=== PATIENT | male | born 1970 | race Caucasian/White ===

== ENCOUNTER → 2017-02-04 | Outpatient (CLI) | payer OTHER ==
[~2017-02-04] VITALS: Ht 172.7 cm; Wt 57.2 kg
[~2017-02-04] MED LIST: AMBIEN 10 MG TA10 MG PO; HYDROCODON-ACE1 EAC5 PO; HYDROCODON-ACE1 EAC7 PO; HYDROCODONE-AP1 EAC6 PO; MOBIC15 MG PO; SEROQUEL 25 MG25 M1 PO; TIZANIDINE HCL4 MG PO; TRAMADOL 50 MG50 MG PO; XANAX 0.5 MG0.5 M1 PO
--- NOTE | ~2017-02-04 | HPC ---
[facility] [address] [place] [place] [address] PAIN MANAGEMENT CONSULTATION Name: MAGDA VILLELA Room #: REG AFSHAN Fredrick.#: [id number] Admission: 02/04/17 Attend Phys: Charles Lebron MD Discharge: Date of : 74 Report #: [id number] THIS REPORT FOR: //name// CC: Lorna ORLANDO MD DATE OF SERVICE: 02/04/2017 Followup visit for management of postoperative pain following an extensive multilevel thoracic fusion. The patient presents to pain clinic today for 15-minute followup. His pain is tolerable, although he still finds that by the end of the day he is really worn out. His pain is 7/10. He still has a sharp tearing feeling mostly on the right side just at the top of his fusion. X-rays reviewed showed that there is about 1/2 inch portion of the right-sided jim that protrudes out and it is possibly trigger pain. I pulled out the and we discussed how the jim has healed nicely and is in good position, but may be pressing on the muscle enough to cause localized muscle spasm and ache. He is going to discuss it with Dr. Orlando. I am not sure if it makes any sense or it is worth the risk to go back in and nip off the upper part of that jim, that is out of my area of expertise and I will leave that discussion and decision to Dr. Orlando. Functionally, he is doing really well. He is working 5 days a week, 40-hour week, but pain is really still a problem and he is requiring some ongoing use of medication. He is conservative in its use and I provide for him only hydrocodone 5/325 to be taken 1-2 tablets up to 3 times a day, 90 tablets is sufficient for a month. We can see he does not use it much. He also has tramadol, which he can use as an alternative. Another problem for the patient is insomnia. He has a lot of trouble waking up in the middle of the night and go back to sleep. He has tried a number of medicines. We reviewed them today. He has not tried a low dose of benzodiazepine. I reviewed his sleep patterns. He is unable to fall asleep and he cannot stay asleep. He says that his mind races at all times. Interestingly, it does not ruminate so much or worries about the future. He tends to replay certain scenes over and over in his head and he says he has done this ever since he was a kid. He has never been a really good sleeper and some nights he does not get a single hour of sleep, lays in bed rests, but does not sleep well, other nights it is 2-4 hours. We will see if maybe anxiolytics at bedtime will be helpful. I think a small dose along with the small dose of hydrocodone will be tolerated [address] [address] PAIN MANAGEMENT CONSULTATION Name: MAGDA VILLELA Room #: REG AFSHAN Reynoso#: [id number] Admission: 02/04/17 Attend Phys: Charles Lebron MD Discharge: Date of : 74 Report #: [id number] and understands the risk and interaction between benzodiazepine and opioid. I am taking him off the Seroquel, which was ineffective. PHYSICAL EXAMINATION: He is pleasant, alert and oriented. Blood pressure 100/63, respirations are 14, heart rate 72. Scar is nicely healed. There is no evidence of inflammation or swelling. At the right upper paravertebral jim there is a marked tenderness and a little bit of muscle spasm trigger. Movements are restricted by some pain. IMPRESSION: Myofascial pain related to right-sided fusion ride. PLAN: 1. Trigger point injection today, this might be diagnostic as well as therapeutic. 2. Renew medications under terms of written opioid agreement. PROCEDURE: Trigger point was performed with a 27-gauge needle gently and infiltrating in and around the upper edge of the jim using 5 mL of 0.5% bupivacaine mixed with 40 mg of triamcinolone. He tolerated the procedure well, was observed for short time and discharged with some reduction in pain. Followup visit is planned in 3 months. By: [id number] Charles Lebron MD /nt
[2017-02-04 10:56] VITALS: BP 100/63
== END | disposition home or self-care (01) ==
LOC: PAIN 07:14
DX: M79.1 Myalgia (principal); G47.00 Insomnia, unspecified

== ENCOUNTER → 2017-03-16 | Outpatient (CLI) | payer OTHER | LOC: RAD 18:08 | DX: M41.85 Other forms of scoliosis, thoracolumbar region (principal); M54.5 Low back pain ==

== ENCOUNTER → 2017-04-08 | Outpatient (CLI) | payer OTHER ==
[~2017-04-08] VITALS: Ht 175.3 cm; Wt 53.7 kg
[~2017-04-08] MED LIST changes: +ALPRAZOLAM2 MG PO; +MORPHINE SULFAT15 M3 PO
[2017-04-08 09:40] VITALS: BP 103/71
== END | disposition home or self-care (01) ==
LOC: PAIN 06:44
DX: G89.29 Other chronic pain (principal); G47.00 Insomnia, unspecified; Z79.899 Other long term (current) drug therapy; F17.210 Nicotine dependence, cigarettes, uncomplicated

== ENCOUNTER → 2017-06-14 | Outpatient (CLI) | payer OTHER ==
[~2017-06-14] VITALS: Ht 170.2 cm; Wt 54.4 kg
--- NOTE | ~2017-06-14 | HPC ---
[facility] [address] [place] [address] PAIN MANAGEMENT CONSULTATION Name: MAGDA VILLELA Room #: REG AFSHAN Fredrick.#: [id number] Admission: 06/14/17 Attend Phys: Charles Lebron MD Discharge: Date of : 74 Report #: [id number] THIS REPORT FOR: //name// CC: Lorna Lebron DATE OF SERVICE: 06/14/2017 Followup visit for severe upper back pain on the left with myofascial components. The patient is status post extensive thoracolumbar fusion. Magda returns to pain clinic today in followup. 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 His job is physical and he is active. At times he is lifting pallets above his head. He has an extensive thoracic fusion extending from T5 through L1 with pedicle screws. I have advised him about activities and I have discussed the importance of protecting the levels above and below with fusion. I ena pictures today to discuss hypermobility issues that can oftentimes result in additional disk injuries above and below. He is sleeping a little better and did not discuss that today. He is receiving his primary care at the [facility] and is unable to see the same physician on a regular basis there. I am his only physician apparently that is seeing him over a long period of time. Today, he reports his pain as an 8, it localized just medial to the left scapula with severe stabbing, pinching sensations and local trigger points. There is not much pain along the fusion or along his scar. He does not have radiation into the anterior chest wall. He has no decreased sensation. He has no pain into his lower extremities and currently is not complaining of pain in his low back. MEDICATIONS: Provided under terms of an opioid agreement. He is currently taking hydrocodone 5/325 three times daily, alprazolam 2 mg at bedtime for sleep, tramadol 50 mg 1-2 tablets 3 times daily. He is not taking morphine on a regular basis, so he is using less opioid medication. PHYSICAL EXAMINATION: Blood pressure 112/69, heart rate 94. BMI is 18.8. He has put on a little bit of weight since his last visit. His affect is pleasant and determined. He exhibits localized trigger point discomfort along the trapezius and the thoracic paravertebral muscle groups. No loss of sensation, numbness or tingling. IMPRESSION: [facility] [address] [place] [address] PAIN MANAGEMENT CONSULTATION Name: MAGDA VILLELA Room #: REG AFSHAN Reynoso#: [id number] Admission: 06/14/17 Attend Phys: Charles Lebron MD Discharge: Date of : 74 Report #: [id number] 1. Thoracic myofascial pain to muscle groups. 2. Extensive thoracic fusion T5-T12 with pedicle screws bilaterally. 3. Insomnia. 4. Management of high risk medications under terms of a written opioid agreement. PLAN: I renewed his hydrocodone 5/325 t.i.d. p.r.n., tramadol 50 to 100 mg t.i.d. p.r.n., alprazolam 2 mg p.o. at bedtime. PROCEDURE: Trigger point injections. The patient was placed in the sitting position, skin was prepped with ChloraPrep. At 25-gauge 1-1/2 inch needle was used to infiltrate a total of 10 mL of 0.5% lidocaine in combination with 0.25% bupivacaine and 20 mg of triamcinolone into muscle groups comprising 6 separate injections. He tolerated the procedure well. Pain was reduced at discharge. Followup visit planned in 3 months. I spent an additional 15-20 minutes today counseling for a total visit time of 25 minutes. This included discussions about smoking and strategies to quit. I have recommended that he stop cold turkey, which has been shown to be more successful. We talked about standard quitting protocols and questions were answered. By: [id number] Charles Lebron MD /nt
[2017-06-14 08:28] VITALS: BP 112/69
== END | disposition home or self-care (01) ==
LOC: PAIN 07:01
DX: M79.1 Myalgia (principal); G47.00 Insomnia, unspecified; F17.200 Nicotine dependence, unspecified, uncomplicated

== ENCOUNTER → 2017-06-22 | Outpatient (CLI) | payer OTHER | LOC: RAD 13:00 | DX: M79.89 Other specified soft tissue disorders (principal) ==

== ENCOUNTER → 2017-09-30 | Outpatient (CLI) | payer OTHER ==
[~2017-09-30] VITALS: Ht 172.7 cm; Wt 59.4 kg
[~2017-09-30] MED LIST changes: +DOXYCYCLINE 10100 MG PO; +PREDNISONE50 MG PO; +PROAIR HFA8.5 GM INH; +REMERON15 MG PO; +TESSALON PERLE100 MG PO
--- NOTE | ~2017-09-30 | HPC ---
[facility] [address] [place] [address] PAIN MANAGEMENT CONSULTATION Name: MAGDA VILLELA Room #: REG MARILYNNorma Reynoso#: [id number] Admission: 09/30/17 Attend Phys: Charles Lebron MD Discharge: Date of : 74 Report #: [id number] THIS REPORT FOR: //name// CC: Lorna Malone DATE OF SERVICE: 09/30/2017 HISTORY OF PRESENT ILLNESS: The patient returns to pain clinic today in followup. I last saw him on 08/05/2017. Continues to work 48 hours a week. He is now just barely a year status post extensive thoracic laminectomy and fusion. He continues on medication management. He has found a recipe that will allow him to sleep at night, which was a major concern. He is here today for renewal of his medications. Medications that seemed to be helping are [place] 5/325, he takes no more than 3 tablets a day for a total of 15 morphine milligram equivalents. He uses mirtazapine 15 mg at bedtime in combination with alprazolam 2 mg at bedtime. With this, he has been able to sleep. This is the first recipe of medications that has worked at all. He takes Celebrex 200 mg daily and finds that this may be helpful as well. I renewed the medication for him today for his osteoarthritic pain. Pain score today is 7. He has trouble getting out of bed, but once the day starts he is able to continue throughout the day at his work. He works 6 days a week. PHYSICAL EXAMINATION: He looks tired. His blood pressure is 117/82, heart rate 94, respirations 16. BMI is 99.9. He has tenderness throughout the mid back. Range of motion of the spine is limited. There is no pain in his extremities. IMPRESSION: 1. Chronic thoracic spine pain, status post extensive thoracic laminectomy and fusion. 2. Insomnia. 3. Posttraumatic stress disorder. 4. Management of high risk medications under terms of written opioid agreement. All medications reviewed and reconciled. The importance of safeguarding medications was discussed. Cautions regarding benzodiazepines and opioids were given. He is on very low dose and shows good tolerance to these medicines and he is finally receiving relief with sleep. [address] [address] PAIN MANAGEMENT CONSULTATION Name: MAGDA VILLELA Room #: REG [facility].#: [id number] Admission: 09/30/17 Attend Phys: Charles Lebron MD Discharge: Date of : 74 Report #: [id number] PLAN: To see him in 3 months. <ELECTRONICALLY SIGNED> By: Charles Lebron MD 11/24/17 [id number] Charles Lebron MD /nt
[2017-09-30 12:47] VITALS: BP 117/82
== END ==
LOC: RAD 07:10 → PAIN 07:10
DX: S69.81XA Other specified injuries of right wrist, hand and finger(s), initial encounter (principal); F11.90 Opioid use, unspecified, uncomplicated; F43.10 Post-traumatic stress disorder, unspecified; Z98.890 Other specified postprocedural states; Z79.899 Other long term (current) drug therapy; X58.XXXA Exposure to other specified factors, initial encounter; Y93.89 Activity, other specified; Y92.89 Other specified places as the place of occurrence of the external cause; Y99.8 Other external cause status

== ENCOUNTER → 2018-01-13 | Outpatient (CLI) | payer OTHER ==
[~2018-01-13] VITALS: Ht 172.7 cm; Wt 57.2 kg
--- NOTE | ~2018-01-13 | HPC ---
[facility] [address] [place] [address] PAIN MANAGEMENT CONSULTATION Name: MAGDA VILLELA Room #: REG AFSHAN M.Beth.#: [id number] Admission: 01/13/18 Attend Phys: Charles Lebron MD Discharge: Date of : 74 Report #: [id number] THIS REPORT FOR: //name// CC: Lorna WEST JR, MD DATE OF SERVICE: 01/13/2018 Followup visit for chronic intractable back pain status post extensive thoracic fusion. It has now been roughly 14 months since the patient's surgery at [facility]. He has had many, many rough months. I followed him carefully for help with management of his pain and encouraged him as he has returned to work. We have struggled mildly with the issue of insomnia. Roughly 6 months ago, he was sleeping just few restless hours per night. We have now had him on the same regimen for many months that have worked effectively and have made a dramatic difference in his ability to function, interact, his psychological outlook and to help control his pain. We have entered into this medication regimen cautiously and carefully by titration and will plan to continue the use of Remeron 15 mg at bedtime, alprazolam 2 mg at bedtime, hydrocodone 5/325 three per day and tramadol 50 mg 1-2 tablets 3 times daily for a maximum of 6 tablets. The patient is doing very well. He reports that his pain intensity is down to a 5/10. He is eating better as well and has gained a bit of weight. There is a different look in his eyes. PHYSICAL EXAMINATION: Pleasant, alert and oriented. Blood pressure is 112/70, heart rate 94, respirations 14, O2 sat 97, his BMI is 19.2. His chest is clear. His cardiac rhythm is regular. His midline back incision is mildly tender. He has limited range of motion throughout the thoracic and lumbar spine. His gait is strong. There is no lumbar symptoms whatsoever at this time. IMPRESSION: 1. Chronic thoracic spine pain, status post extensive thoracic laminectomy and fusion. 2. Posttraumatic stress disorder, which has improved dramatically with treatment of his insomnia. 3. Management of high risk medications under terms of written opioid agreement. We have reviewed risks and benefits of his medications. The combination of a benzodiazepine and opioid is well understood and the patient recognizes that there are some risks, but at current doses which have been carefully managed, I [facility] [address] [place] [address] PAIN MANAGEMENT CONSULTATION Name: MAGDA VILLELA Room #: REG CLI Edgardo#: [id number] Admission: 01/13/18 Attend Phys: Charles Lebron MD Discharge: Date of : 74 Report #: [id number] think they provided far more good than harm. The benefit of sleep cannot be over emphasized. Followup visit is planned in 3 months. By: 1437 Charles Lebron MD /oli
[2018-01-13 10:56] VITALS: BP 112/70
== END ==
LOC: PAIN 07:01
DX: M54.6 Pain in thoracic spine (principal); G89.29 Other chronic pain; M96.1 Postlaminectomy syndrome, not elsewhere classified; F43.10 Post-traumatic stress disorder, unspecified; F11.90 Opioid use, unspecified, uncomplicated

== ENCOUNTER → 2018-04-11 | Outpatient (CLI) | payer OTHER ==
[~2018-04-11] VITALS: Ht 172.7 cm; Wt 58.8 kg
--- NOTE | ~2018-04-11 | CRIT ---
[facility] [place] [address] CRITICAL CARE NOTE Name: MAGDA VILLELA Room #: REG AFSHAN Edgardo#: [id number] Admission: 04/11/18 Attend Phys: Charles Lebron MD Discharge: Date of : 74 Report #: [id number] THIS REPORT FOR: //name// CC: Charles Malone DO DATE OF SERVICE: 04/11/2018 Followup visit for chronic thoracic pain status post extensive thoracic laminectomy and fusion. The patient returns to pain clinic today for medication management. I have followed him closely since the time following his surgery. He has returned to work and I have worked carefully to taper his medication. 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 He has been working 6 days a week. His work is intense and requires lifting and caring. He tends to be the first to volunteer for tasks if his story is to be accepted and I have no reason not to. His describes him in the same terms. He has told me today that he is going to begin backing off and start working to 5-day week with better hours. I am in full agreement. 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 He has struggled in the past with the issues of posttraumatic stress disorder, which is documented throughout my record. He has had insomnia as a result of this and with careful titration, we are having him sleeping better. He is on drugs that I have taken ____ carefully could cause potential and serious side effects. We have discussed on multiple occasions and reviewed today the proper method of taking his medications to ensure that there is no overdose. He is on a combination of alprazolam 2 mg at bedtime and hydrocodone 5/325, which he takes up to 3 times a day. In addition, he is on tramadol, which he takes 2 tablets 3 times daily and Remeron 15 mg at bedtime. While I am not tremendously fond of polypharmacy, I have been able to carefully manage his medications myself and watch over it dosing. We have talked about lowering the dose when he can to manage his opioid medications and other pain medications as carefully as possible. PHYSICAL EXAMINATION: Today, he is pleasant, alert and oriented. He is 5 feet 8 inches, 129 pounds, BMI is 19.7 which is pretty standard for him actually up a little bit. His blood is pressure 101/63, heart rate 77. He has tenderness in his mid back in the area of his thoracic fusion. He is able to ambulate without difficulty. He and his in fact rode in this morning on their motorcycle once again! [facility] [address] [place] [address] CRITICAL CARE NOTE Name: MAGDA VILLELA Room #: REG AFSHAN Reynoso#: [id number] Admission: 04/11/18 Attend Phys: Charles Lebron MD Discharge: Date of : 74 Report #: [id number] IMPRESSION: 1. Chronic thoracic pain status post extensive thoracic laminectomy and fusion. 2. Posttraumatic stress disorder and insomnia, which is improved with careful management of medication. 3. Management of opioid medications under terms of written opioid agreement, which were reviewed in detail today as far as safeguarding medications and side effects. Followup visit planned in my pain clinic in 3 months. Medications were renewed with release dates in 4 and 8 weeks. By: [id number] Charles Lebron MD /nt
[2018-04-11 10:20] VITALS: BP 101/63
== END ==
LOC: PAIN 08:37
DX: M54.6 Pain in thoracic spine (principal); G89.29 Other chronic pain; Z79.891 Long term (current) use of opiate analgesic

== ENCOUNTER → 2018-07-18 | Outpatient (CLI) | payer BC, OTHER ==
[~2018-07-18] VITALS: Ht 172.7 cm; Wt 58.5 kg
--- NOTE | ~2018-07-18 | HPC ---
[facility] [address] [place] [address] PAIN MANAGEMENT CONSULTATION Name: MAGDA VILLELA Room #: REG AFSHAN Reynoso#: [id number] Admission: 07/18/18 Attend Phys: Callie Dillard Discharge: Date of : 74 Report #: [id number] THIS REPORT FOR: //name// CC: Callie Malone DO DATE OF SERVICE: 07/18/2018 REASON FOR VISIT: Followup visit today for chronic thoracic pain status post extensive thoracic laminectomy and fusion. HISTORY OF PRESENT ILLNESS: The patient returns to the pain clinic today for medical management. Dr. Lebron has followed him. This is his first time seeing me. He has returned to work. He works at [employer]. Currently, he tells me that he is moving quite large items, trying to use good body mechanics. Sometimes he has to alter his plan of how to do things, but so far, he has been able to work about 35 hours a week at [employer]. He states that he has had lots of problems with his medicine getting filled from the [facility] that he has been using. They have been only giving him 4-7 days supply of his tramadol, which he normally takes 250 mg 3 times a day, but he has been having to take one tablet at a time. They also did not fill his Xanax last month with no explanation of why. We did do prior authorize hydrocodone and since that prior authorization done he has been getting that in a timely fashion. The patient complains of pain hurting all over low back, upper back, feels the middle of his back like a leather strap. It is just down the middle of it with decreased sensation. Pain score is 6/10 today, worse with activity such as his work, better when he has his medications at the normal doses that Dr. Lebron prescribes. His or girlfriend is here today and states that he was doing better when he was on all of his medications and they found a good regimen that Dr. Lebron has been giving him. The patient denies any somnolence or constipation issues. ALLERGIES: No known drug allergies. MEDICATIONS: Hydrocodone 5/325 up to 3 times a day as needed for severe pain, tramadol 50 mg script is for 2 tablets 3 times a day, mirtazapine 15 mg at bedtime and Xanax 2 mg at bedtime. PQRS: 1. History of osteoarthritis in his back. No rheumatoid arthritis. 2. Height 5 feet 2 inches, weight 129, BMI 19.6. 3. Vital signs: Blood pressure 115/86, pulse is 90, respirations 14, oxygen level is 99. 4. Pain score 6-8. 5. Fall risk. Denies dizziness, does not need help walking or standing. He has not fallen in the last [address] [address] PAIN MANAGEMENT CONSULTATION Name: MAGDA VILLELA Room #: REG CLNorma Reynoso#: [id number] Admission: 07/18/18 Attend Phys: Callie Dillard Discharge: Date of : 74 Report #: [id number] 6. The patient is not on any blood thinners. 7. No history of hypertension. 8. The patient has opioid therapy greater than 6 weeks, therefore an opioid contract is on the chart. 9. Risk assessment tool was provided and it is a low risk on that. 10. Functional assessment score is 32/70. 11. Denies recreational drug use. Does smoke tobacco products daily and no alcohol use. [place] and [place] K-TRACS, PDMP were done with no apparent abuse listed or no other physicians prescribing medicines. It does show that the patient has been getting 4-7 days of his tramadol and a full 30 days of his hydrocodone. No Xanax has been filled in the last 30 days. The patient states this is due to his pharmacy not filling them. PHYSICAL EXAMINATION: The patient is a 48-year-old is pleasant, alert and orientated. His BMI is 19.6, which is down even some from last visit. He has tenderness in his mid back in his area of thoracic fusion. He is able to ambulate without difficulty. He did ride his motorcycle to the appointment today. He states that he is able to bend without difficulty, but does have pain in his middle and low back. ASSESSMENT: 1. Chronic thoracic pain status post thoracic laminectomy and fusion. 2. Posttraumatic stress disorder and insomnia. 3. Management of opioid medications under opioid agreement. We reviewed the fact that opiate medications are being used to provide analgesia adequate to support activities of daily living, not attempting to achieve a specific pain score on the 0-10 Visual Analog Scale. The current opiate medications are providing sufficient analgesia to allow the patient to participate in activities of daily living. The patient is not exhibiting any aberrant behavior suggestive of drug diversion. The patient is not having any adverse reactions to medications. The patient is not suffering from daytime somnolence or mental acuity changes. The patient is managing opiate-induced constipation with appropriate ycag-nev-mdeuwil agents and dietary considerations. The patient was counseled on concern for caution with operating a motor vehicle while using opiate medications. A physical exam was performed and the patient's functional status was evaluated. All patients with back pain were advised against the bed rest greater than 4 days and were advised to return to normal activities. Pain score assessment was noted and the treatment plan was reviewed with the patient. All current medications, both prescribed and OTC were reviewed and reconciled on the electronic medical record. Tobacco screening was accomplished and smoking cessation was advised when indicated. BMI was noted and diet/exercise modification was recommended for all patients following outside normal [facility] [address] [place] [address] PAIN MANAGEMENT CONSULTATION Name: MAGDA VILLELA Room #: REG AFSHAN Reynoso#: [id number] Admission: 07/18/18 Attend Phys: Callie Dillard Discharge: Date of : 74 Report #: [id number] parameters. I reviewed with the patient today their responsibilities to safeguard prescription medications, reviewed their responsibility to utilize medications only as prescribed by the physician. They are to seek and receive pain medications only from 1 physician group ( [facility]). They are to use 1 pharmacy and keep the clinic informed if they change pharmacies. Their responsibilities include making followup visits in a timely fashion and to avoid abrupt discontinuation of medication usage. Their responsibilities further include bringing their medications (bottles from the pharmacy with residual pills) to the visit for possible confirmation of pill counts and the patient understands it is their responsibility to submit to random drug screens to ensure both that the medications prescribed are present, and that no other controlled substances are present. All prescriptions provided today were generated electronically. PLAN: 1. The patient was given a script for Remeron 15 mg 1 p.o. at bedtime with 2 refills; script for hydrocodone 5/325, #90, one p.o. q. 8 hours for today, 4-week and 8-week; tramadol 50 mg 2 tablets 3 times a day, #180 with 2 additional refills and Xanax 2 mg 1 p.o. at bedtime. 2. We discussed in depth regarding the MME requirements for his narcotics. The patient falls below the 90 mEq that the CDC is recommending. The patient does also take a benzodiazepine. We discussed safeguarding these and the use of these. The patient states the regime that Dr. Lebron has him on is very helpful. 3. We will await a prior authorization from [facility] for tramadol and if need be talk to the pharmacy regarding why they are not allowing his Xanax refill. The patient was given our fax number to have them send the prior authorization for tramadol, so we can start doing that. 4. The patient will be seen in 3 months for medication management with Dr. Lebron or myself. The patient was seen in collaboration with Dr. Charles Lebron who did see the patient for a short visit also today. <ELECTRONICALLY SIGNED> By: Callie Dillard 07/19/18 [id number] Callie Dillard /oli
[2018-07-18 14:15] VITALS: BP 115/86
== END ==
LOC: PAIN 07:16
DX: M43.24 Fusion of spine, thoracic region (principal); M96.1 Postlaminectomy syndrome, not elsewhere classified; G47.00 Insomnia, unspecified; G89.29 Other chronic pain; F43.10 Post-traumatic stress disorder, unspecified; X58.XXXD Exposure to other specified factors, subsequent encounter; Z79.891 Long term (current) use of opiate analgesic; Z79.899 Other long term (current) drug therapy

== ENCOUNTER → 2018-10-04 | Outpatient (CLI) | payer BC, OTHER | LOC: RAD 11:23 | DX: M47.816 Spondylosis without myelopathy or radiculopathy, lumbar region (principal); M41.85 Other forms of scoliosis, thoracolumbar region; M85.89 Other specified disorders of bone density and structure, multiple sites ==

== ENCOUNTER → 2018-10-06 | Outpatient (CLI) | payer BC, OTHER ==
[~2018-10-06] VITALS: Ht 172.7 cm; Wt 60.1 kg
--- NOTE | ~2018-10-06 | HPC ---
[facility] [place] [address] PAIN MANAGEMENT CONSULTATION Name: MAGDA VILLELA Room #: REG MARILYNNorma Alcala.#: [id number] Admission: 10/06/18 Attend Phys: Charles Lebron MD Discharge: Date of : 74 Report #: [id number] THIS REPORT FOR: //name// CC: Charles Malone DO DATE OF SERVICE: 10/06/2018 Followup visit for chronic thoracic back pain status post 8-level thoracic laminectomy and fusion. The patient is here today with his . He had a sudden onset of pain a couple of weeks ago and the pain now has been much worse. I ordered new x-rays, AP, lateral, flexion and extension views of the lumbar spine. There appears to be no fracture or no change in the area above and below his fusion where we might expect that there would be some additional stresses applied. 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 I do not believe he should be doing this, particularly with such an extensive fusion. He is going to put a lot of stress above and below that fusion and I think that he is at great risk of breakdown. He is a young man, born in 1969, not yet 52. I would be much happier if he ____ job that does not involve manual labor. He is considering taking disability. I am typically opposed to taking full disability, but if he can take a partial disability which I would certainly support and work to keep himself active, I think that this would be reasonable in his best interest. He is a workaholic. He likes to work and he enjoys the challenges that face him. He likes accomplishing tasks and is definitely someone who appreciates the respect he gets for doing a job well. I think he would miss working, so transition is something alternate that would probably be better than a full disability. He is tolerating his medications well. He does not use excessive amounts of hydrocodone, but uses tramadol at a pretty high level, 100 mg 3 times daily, which has been helpful. Hydrocodone is taken only at a dose of 5/325 and up to 3 times a day. He uses it only as necessary. One of the biggest problems we have had the patient for a long time is sleep and with careful titration we now have him on a fairly helpful regimen with mirtazapine, which provides sedation and antidepressant and pain effect in combination with alprazolam 2 mg, a fairly high dose. We understand that there is an opioid-benzodiazepine interaction, but if he maintains his current dose, he has shown that he can take it safely. He will do so and safely manage his medication. He has a very supportive who helps him oversee his medication. MEDICATIONS: Reviewed and reconciled. [address] [address] PAIN MANAGEMENT CONSULTATION Name: MAGDA VILLELA Room #: REG AFSHAN Reynoso#: [id number] Admission: 10/06/18 Attend Phys: Charles Lebron MD Discharge: Date of : 74 Report #: [id number] PHYSICAL EXAMINATION: Today, he is pleasant as always. His blood pressure is 115/82, heart rate is 88, respirations 14. He is 5 feet 8 inches, 132 pounds, BMI of 20.2. Pain intensity is 8. I examined his scar, which looks fine. There is no evidence of swelling, redness, or inflammation at either end of his fusion. You can palpate the distal portion of the upper jim, but it does not necessarily tent the skin. He has limited range of motion of course in the area of fusion and he has some discomfort above the fusion, but the pain really extends all the way along the scar. He has no pain in the legs at this time. Deep tendon reflexes in lower extremities are normal with no evidence of hyperreflexia. IMPRESSION: 1. Post-laminectomy and fusion, multiple level thoracic with chronic persistent spine pain. 2. Management of high risk medications under terms of an opioid agreement. PLAN: Medications were renewed. Counseling was provided over the course of his 25-minute office visit. He continues to smoke 1 pack a day. He was encouraged to try and reduce his reliance on this addicting substance for stress management. I have encouraged him to continue to seek alternate work and we will see him back in the pain clinic in 3 months. By: [id number] Charles Lebron MD /nt
[2018-10-06 13:52] VITALS: BP 115/82
--- NOTE | 2018-10-06 14:06 | NUR ---
Pain Clinic Assessment: 1. History of Osteoarthritis: Not Applicable History of Rheumatoid Arthritis: Not Applicable 2. Height: 5 ft. 8 in. 172.7 cm. Weight: 132.6 lb. oz. 60.147 kg. Patient's BMI: 20.2 3. Vital Signs: BP: 115/82 Pulse: 88 Resp: 14 Temp: 02 Sat: 100 ECG Mon: 4. Pain Intensity: 8 5. Fall Risk: Dizziness: N Needs help standing or walking: N Fallen in the last 3 months: N Fall risk comments: 6. Patient on Blood Thinner: None 7. History of Hypertension: N 8. Opioid Therapy greater than 6 weeks: Y Opiate Contract Signed: 04/08/17 9. Risk Assessment Tool Provided: LOW RISK 09/29 10. Functional Assessment Tool: 11. Recreational Drug Use: Never Drug Type: Tobacco Use: Current Every Day Smoker Tobacco Type: Cigarettes Amount or Packs/day: 1 PACK DAY How Many Years: Alcohol Use: No Frequency: Quant: Pain Clinic Assessment: 1. History of Osteoarthritis: Not Applicable History of Rheumatoid Arthritis: Not Applicable 2. Height: 5 ft. 8 in. 172.7 cm. Weight: 132.6 lb. oz. 60.147 kg. Patient's BMI: 20.2 3. Vital Signs: BP: 115/82 Pulse: 88 Resp: 14 Temp: 02 Sat: 100 ECG Mon: 4. Pain Intensity: 8 5. Fall Risk: Dizziness: N Needs help standing or walking: N Fallen in the last 3 months: N Fall risk comments: 6. Patient on Blood Thinner: None 7. History of Hypertension: N 8. Opioid Therapy greater than 6 weeks: Y Opiate Contract Signed: 04/08/17 9. Risk Assessment Tool Provided: LOW RISK 09/29 10. Functional Assessment Tool: 11. Recreational Drug Use: Never Drug Type: Tobacco Use: Current Every Day Smoker Tobacco Type: Cigarettes Amount or Packs/day: 1 PACK DAY How Many Years: Alcohol Use: No Frequency: Quant:
== END ==
LOC: PAIN 07:09
DX: M43.24 Fusion of spine, thoracic region (principal); M96.1 Postlaminectomy syndrome, not elsewhere classified; Z79.891 Long term (current) use of opiate analgesic; Z79.899 Other long term (current) drug therapy

== ENCOUNTER → 2019-04-06 | Outpatient (CLI) | payer OTHER ==
[~2019-04-06] VITALS: Ht 172.7 cm; Wt 62.1 kg
[2019-04-06 08:09] VITALS: BP 116/72
--- NOTE | 2019-04-06 08:18 | NUR ---
Pain Clinic Assessment: 1. History of Osteoarthritis: Not Applicable History of Rheumatoid Arthritis: Not Applicable 2. Height: 5 ft. 8 in. 172.7 cm. Weight: 137.0 lb. oz. 62.143 kg. Patient's BMI: 20.8 3. Vital Signs: BP: 116/72 Pulse: 75 Resp: 14 Temp: 02 Sat: 100 ECG Mon: 4. Pain Intensity: 5 5. Fall Risk: Dizziness: N Needs help standing or walking: N Fallen in the last 3 months: N Fall risk comments: 6. Patient on Blood Thinner: None 7. History of Hypertension: N 8. Opioid Therapy greater than 6 weeks: Y Opiate Contract Signed: 04/06/19 9. Risk Assessment Tool Provided: LOW RISK 09/29 10. Functional Assessment Tool: 11. Recreational Drug Use: Never Drug Type: Tobacco Use: Current Every Day Smoker Tobacco Type: Cigarettes Amount or Packs/day: 1/4 How Many Years: 31 Alcohol Use: No Frequency: Quant:
--- NOTE | 2019-04-06 10:34 | HPC ---
[facility] [address] [place] [address] PAIN MANAGEMENT CONSULTATION Name: MAGDA VILLELA Room #: REG AFSHAN Reynoso#: [id number] Admission: 04/06/19 ������������������ Attend Phys: Callie Dillard Discharge: ������������������ Date of : 74 Report #: [id number] THIS REPORT FOR: //name// CC: Callie Malone DATE OF SERVICE: 04/06/2019 CHIEF COMPLAINT: Chronic thoracic back pain status post 8-level thoracic laminectomy and fusion. HISTORY OF PRESENT ILLNESS: This is a 49-year-old gentleman who returns to the pain clinic for refill of his medications. He tells me he has been unable to come for a while due to lack of insurance. He now has changed to a different company. In the meantime, he had been decreasing his pain medicines slowly and being able to get by with less medicine but increased pain. He tells me his pain score is a 5/10 today, mostly in his mid and lower back. He does have some leg pain as well. It is a constant, aching, stabbing, sharp pain, worse with activity, standing and walking, but he does continue to work on a daily basis despite his pain scores. He tells me his medication is helpful, but he has not had any hydrocodone for about a month and tramadol for a couple of weeks. He did run out of his mirtazapine and Xanax, last night he took his last dose, so he is wanting refills of all of his medications today. He does not suffer from any constipation, even when he is at his normal dose of narcotics. ALLERGIES: No known drug allergies. CURRENT LIST OF MEDICATIONS: Tramadol 50 mg 2 tablets 3 times a day, hydrocodone 5/325 p.r.n., Xanax 2 mg at bedtime and mirtazapine 15 mg at bedtime. PQRS: 1. He is not suffered from osteoarthritis or rheumatoid arthritis. 2. Height is 5 feet 8 inches, weight is 137 and BMI is 20. 3. VITAL SIGNS: Blood signs 116/72, pulse is 75, respirations 14 and oxygen sat is 100. 4. Pain score is 5/10. 5. Denies dizziness. He does not need help with walking or standing and has not fallen in the last 3 months. 6. The patient is not on any blood thinners or hypertension medicines. 7. Opioid therapy is greater than 6 weeks; therefore, an opiate signed contract is on the chart, renewed today. His risk assessment tool is low. Functional assessment is 32/70. 8. The patient does not use recreational drugs. He does smoke cigarettes about a fourth of a pack a day and does not drink alcohol. [address] [address] PAIN MANAGEMENT CONSULTATION Name: MAGDA VILLELA Room #: REG AFSHAN Reynoso#: [id number] Admission: 04/06/19 ������������������ Attend Phys: Callie Dillard Discharge: ������������������ Date of : 74 Report #: [id number] We did check the prescription monitoring system, it does show that he filled his medications last in December and then has slowly weaned down off those medications. There is a drug screen on the chart that is appropriate for his medications that he was prescribed from us. PHYSICAL EXAMINATION: GENERAL: This is alert and orientated 49-year-old who is pleasant, placing his pain score today at 5/10. HEENT: Normocephalic and atraumatic. Extraocular eye muscles are intact. Mucous membranes are moist. MUSCULOSKELETAL: He has a well-healed scar on his back. He complains of tenderness in the area of his thoracic fusion. He is able to ambulate without difficulty. He is able to bend without difficulty, but does have pain in his mid and lower back. His lower extremity strength judged to be 5/5 in all major muscle groups. He denies any pain in his legs currently. IMPRESSION: 1. Post-laminectomy and fusion, multiple level thoracic spine with chronic persistent spine pain. 2. Management of high risk medications under terms of written opioid agreement. 3. Insomnia. We reviewed the fact that opiate medications are being used to provide analgesia adequate to support activities of daily living, not attempting to achieve a specific pain score on the 0-10 Visual Analog Scale. The current opiate medications are providing sufficient analgesia to allow the patient to participate in activities of daily living. The patient is not exhibiting any aberrant behavior suggestive of drug diversion. The patient is not having any adverse reactions to medications. The patient is not suffering from daytime somnolence or mental acuity changes. The patient is managing opiate-induced constipation with appropriate midn-hep-xpjebag agents and dietary considerations. The patient was counseled on concern for caution with operating a motor vehicle while using opiate medications. A physical exam was performed and the patient's functional status was evaluated. All patients with back pain were advised against the bed rest greater than 4 days and were advised to return to normal activities. Pain score assessment was noted and the treatment plan was reviewed with the patient. All current medications, both prescribed and OTC were reviewed and reconciled on the electronic medical record. Tobacco screening was accomplished and smoking cessation was advised when indicated. BMI was noted and diet/exercise modification was recommended for all patients following outside normal parameters. I reviewed with the patient today their responsibilities to safeguard prescription medications, reviewed their responsibility to utilize medications [address] [address] PAIN MANAGEMENT CONSULTATION Name: MAGDA VILLELA Room #: REG [facility]..#: [id number] Admission: 04/06/19 ������������������ Attend Phys: Callie Dillard Discharge: ������������������ Date of : 74 Report #: [id number] only as prescribed by the physician. They are to seek and receive pain medications only from 1 physician group ( [facility]). They are to use 1 pharmacy and keep the clinic informed if they change pharmacies. Their responsibilities include making followup visits in a timely fashion and to avoid abrupt discontinuation of medication usage. Their responsibilities further include bringing their medications (bottles from the pharmacy with residual pills) to the visit for possible confirmation of pill counts and the patient understands it is their responsibility to submit to random drug screens to ensure both that the medications prescribed are present, and that no other controlled substances are present. All prescriptions provided today were generated electronically. PLAN: 1. We discussed treatment options with the patient today. The patient has slowly weaned down his medication since he is unable to come to the doctor due to insurance issues. 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 He has done fairly well, though he was taking additional Tylenol. We discussed resuming his medications slowly to see the lowest most effective dose that he will need. He will be given scripts of his former levels of medication that encouraged to resume slowly to see if he is able to take a lower dose. The patient will call with his lower dose. 2. Scripts given for hydrocodone 5/325, #90 for today, 4 and 8-week release and tramadol 50 mg 2 tablets 3 times a day, #180 with 2 additional refills. 3. The patient has significant insomnia and aside from his pain in his back, this is most problematic for him. Scripts given for his Remeron 15 mg #30 with two additional refill and Xanax 2 mg at bedtime, #30 with 2 additional refills. This medication affords him the ability to sleep at night. 4. The patient did resign his opioid contract with us. 5. The patient's current morphine milliequivalent is 45 based on the CDC guidelines if he is taking the full amount of these prescriptions while under the CDC guidelines. 6. The patient seen in collaboration today with Dr. Alphonso Schulz. This case was discussed with Dr. Charles Lebron, though Alphonso Schulz is covering for him today. ��������������������������������������������� <ELECTRONICALLY SIGNED> ���������������������������������������� By: Callie Dillard ��������������������������������������������� 04/06/19 1034 [id number] [id number] Callie Dillard /oli
== END ==
LOC: PAIN 04-03 08:19
DX: M43.24 Fusion of spine, thoracic region (principal); G47.00 Insomnia, unspecified; Z98.890 Other specified postprocedural states; Z79.899 Other long term (current) drug therapy; Z79.891 Long term (current) use of opiate analgesic

== ENCOUNTER → 2019-08-31 | Outpatient (CLI) | payer OTHER ==
[~2019-08-31] VITALS: Ht 172.7 cm; Wt 63.6 kg
[~2019-08-31] MED LIST changes: +MIRTAZAPINE15 M2 PO
[2019-08-31 14:52] VITALS: BP 103/72
--- NOTE | 2019-08-31 15:10 | NUR ---
Pain Clinic Assessment: 1. History of Osteoarthritis: DENIES History of Rheumatoid Arthritis: DENIES 2. Height: 5 ft. 8 in. 172.7 cm. Weight: 140.2 lb. oz. 63.594 kg. Patient's BMI: 21.3 3. Vital Signs: BP: 103/72 Pulse: 91 Resp: 14 Temp: 02 Sat: 97 ECG Mon: 4. Pain Intensity: 5 5. Fall Risk: Dizziness: N Needs help standing or walking: N Fallen in the last 3 months: N Fall risk comments: 6. Patient on Blood Thinner: None 7. History of Hypertension: N 8. Opioid Therapy greater than 6 weeks: Y Opiate Contract Signed: 04/06/19 9. Risk Assessment Tool Provided: LOW RISK 09/29 10. Functional Assessment Tool: 11. Recreational Drug Use: Never Drug Type: Tobacco Use: Current Every Day Smoker Tobacco Type: Cigarettes Amount or Packs/day: 1 How Many Years: 30 Alcohol Use: No Frequency: Special Occasions Quant:
--- NOTE | 2019-09-01 08:23 | HPC ---
[facility] [address] [address] PAIN MANAGEMENT CONSULTATION Name: MAGDA VILLELA Room #: REG AFSHAN Reynoso#: [id number] Admission: 08/31/19 Attend Phys: Callie Dillard Discharge: Date of : 74 Report #: [id number] THIS REPORT FOR: //name// CC: Callie Malone DATE OF SERVICE: 08/31/2019 CHIEF COMPLAINT: Chronic thoracic pain status post 8 level thoracic laminectomy and fusion. HISTORY OF PRESENT ILLNESS: This is a 49-year-old gentleman who returns to the pain clinic today for refill of his medication. We last saw him in March. He reports he is doing quite well on his current regimen, rating his pain score at 5/10 today. He does take his tramadol very sparingly and does take the hydrocodone as needed up to 3 times a day, occasionally only needing 2. He also finds his alprazolam and Remeron very beneficial allowing him to sleep since he does suffer from insomnia. Most of his pain is located in his mid to low back. It is an aching, pressure, occasionally sharp, worse with activity and walking, bending too much, but his medications are very beneficial. Magda reports that he feels that his pain is better controlled since he has recently changed jobs. 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 He feels this is much better for him despite being away from home for a significant amount of time. He has actually gained a little bit of weight and feels much better since starting this new job. ALLERGIES: No known drug allergies. CURRENT LIST OF MEDICATIONS: Tramadol p.r.n., Remeron 15 mg at bedtime, hydrocodone 5/325 t.i.d. p.r.n., alprazolam 2 mg at bedtime. PQRS: 1. The patient is not suffering from osteoarthritis or rheumatoid arthritis. 2. Height is 5 feet 8 inches, weight is 140, BMI is 21. 3. Vital signs 103/72, pulse is 91, respirations 14, oxygen sat is 97. 4. Pain score is 5/10. 5. Denies dizziness, does not need help walking or standing, has not fallen in the last 3 months. 6. The patient is not on any blood thinners or medicine for hypertension. 7. Opioid therapy is greater than 6 weeks; therefore, an opioid signed contract is on the chart. Risk assessment tool is low. Functional assessment is 32/70. 8. Recreational drug use, he denies. He is a current smoker of cigarettes [address] [place] [address] PAIN MANAGEMENT CONSULTATION Name: MAGDA VILLELA Room #: RUTH Reynoso#: [id number] Admission: 08/31/19 Attend Phys: Callie Dillard Discharge: Date of : 74 Report #: [id number] pack a day. He does not drink any alcohol. According to the prescription monitoring system, the patient filled his last hydrocodone this week. He is due for his other medications. There is a recent drug screen in the chart that is appropriate as well. He reports he does safeguard his medicine when he is traveling. PHYSICAL EXAMINATION: GENERAL: This is alert and orientated 49-year-old gentleman who appears his stated age, placing his current pain score at 5/10. HEENT: Normocephalic, atraumatic. Extraocular eye muscles are intact. Mucous membranes are moist. MUSCULOSKELETAL: He has tenderness in his thoracic area. Able to ambulate without difficulty. He has a well-healed scar in his thoracic region from his fusion. His lower extremity strength judged to be 5/5 in all major muscle groups. IMPRESSION: 1. Post-laminectomy with fusion, multiple level of thoracic fusion. 2. Chronic persistent thoracic back pain. 3. Management of high-risk medications under terms of written opioid agreement. 4. Insomnia. We reviewed the fact that opiate medications are being used to provide analgesia adequate to support activities of daily living, not attempting to achieve a specific pain score on the 0-10 Visual Analog Scale. The current opiate medications are providing sufficient analgesia to allow the patient to participate in activities of daily living. The patient is not exhibiting any aberrant behavior suggestive of drug diversion. The patient is not having any adverse reactions to medications. The patient is not suffering from daytime somnolence or mental acuity changes. The patient is managing opiate-induced constipation with appropriate dsod-ykz-cujyyfu agents and dietary considerations. The patient was counseled on concern for caution with operating a motor vehicle while using opiate medications. A physical exam was performed and the patient's functional status was evaluated. All patients with back pain were advised against the bed rest greater than 4 days and were advised to return to normal activities. Pain score assessment was noted and the treatment plan was reviewed with the patient. All current medications, both prescribed and OTC were reviewed and reconciled on the electronic medical record. Tobacco screening was accomplished and smoking cessation was advised when indicated. BMI was noted and diet/exercise modification was recommended for all patients following outside normal parameters. I reviewed with the patient today [facility] [address] [address] PAIN MANAGEMENT CONSULTATION Name: MAGDA VILLELA Room #[facility] REG [facility] [id number] Admission: 08/31/19 Attend Phys: Callie SANTIAGO Gilma Discharge: Date of : 74 Report #: [id number] prescription medications, reviewed their responsibility to utilize medications only as prescribed by the physician. They are to seek and receive pain medications only from 1 physician group ( [facility]). They are to use 1 pharmacy and keep the clinic informed if they change pharmacies. Their responsibilities include making followup visits in a timely fashion and to avoid abrupt discontinuation of medication usage. Their responsibilities further include bringing their medications (bottles from the pharmacy with residual pills) to the visit for possible confirmation of pill counts and the patient understands it is their responsibility to submit to random drug screens to ensure both that the medications prescribed are present, and that no other controlled substances are present. All prescriptions provided today were generated electronically. PLAN: 1. We discussed treatment options with the patient today. The patient finds his medication very beneficial. He is using his tramadol very sparingly and does not need a refill of that medication today. It has been 5 months since his last visit here; therefore, he has been taking less of his hydrocodone as well, recently filled his last prescription. 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 We will refill his hydrocodone 7.5/325, #90 for 4-week, 8-week and 12-week release. This will place the patient at 50 morphine milliequivalents per day. 2. We will refill his alprazolam 2 mg that he takes at bedtime along with his Remeron 15 mg #30 for 2 additional refills. The patient finds these very beneficial in helping with his insomnia. He feels that he could not function if he was without these medications. He understands the risks and reactions with these medications and his opioid medications. 3. The patient is seen in collaboration with Dr. Charles Lebron. The patient will return in 3 months or as needed for medications. <ELECTRONICALLY SIGNED> By: Callie Dillard 09/01/19 0823 [id number] Callie Dillard /oli
== END ==
LOC: PAIN 07:02
DX: M96.1 Postlaminectomy syndrome, not elsewhere classified (principal); M54.6 Pain in thoracic spine; G47.00 Insomnia, unspecified

== ENCOUNTER → 2019-12-25 | Outpatient (CLI) | payer OTHER ==
[~2019-12-25] VITALS: Ht 172.7 cm; Wt 62.3 kg
[~2019-12-25] MED LIST changes: +NICODERM CQ1 EAC1 TOP; +NICOTINE TRANSD14 M1 TRANSDERM; +NICOTINE TRANSD21 M1 TOP; +REMERON15 M2 PO
[2019-12-25 09:02] VITALS: BP 106/82
--- NOTE | 2019-12-25 09:15 | NUR ---
Pain Clinic Assessment: 1. History of Osteoarthritis: DENIES History of Rheumatoid Arthritis: DENIES 2. Height: 5 ft. 8 in. 172.7 cm. Weight: 137.4 lb. oz. 62.324 kg. Patient's BMI: 20.9 3. Vital Signs: BP: 106/82 Pulse: 73 Resp: 14 Temp: 02 Sat: 99 ECG Mon: 4. Pain Intensity: 3 5. Fall Risk: Dizziness: N Needs help standing or walking: N Fallen in the last 3 months: N Fall risk comments: 6. Patient on Blood Thinner: None 7. History of Hypertension: N 8. Opioid Therapy greater than 6 weeks: Y Opiate Contract Signed: 04/06/19 9. Risk Assessment Tool Provided: LOW RISK 1 10. Functional Assessment Tool: 11. Recreational Drug Use: Never Drug Type: Tobacco Use: Current Every Day Smoker Tobacco Type: Cigarettes Amount or Packs/day: 1 paci How Many Years: 37 Alcohol Use: No Frequency: Quant:
--- NOTE | 2019-12-25 14:46 | HPC ---
[facility] [address] [place] [address] PAIN MANAGEMENT CONSULTATION Name: MAGDA VILLELA Room #: REG AFHSAN Reynoso#: [id number] Admission: 12/25/19 Attend Phys: Callie Dillard Discharge: Date of : 74 Report #: [id number] THIS REPORT FOR: cc: Gerald Malone Vincent R. DO Hocker,Callie HENDERSON ~ CC: Charles Lebron DATE OF SERVICE: 12/25/2019 CHIEF COMPLAINT: Chronic thoracic back pain, status post thoracic laminectomy and fusion. HISTORY OF PRESENT ILLNESS: This is a 49-year-old gentleman who returns to the pain clinic today for refill of his medications. He feels that the medicines are very beneficial in helping him control his mid and low back. He occasionally also suffers from neck pain. Today, he is reporting his pain score 3/10 and is an aching, sharp, stabbing pain that is worse with prolonged standing and walking. He feels that his medication as well as heat and exercising as very beneficial. 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 At times, he has been able to decrease his medicine slightly during the day for pain control, but he is unable to go without his Remeron at night and he feels that is very beneficial in helping him sleep. He is able to take occasionally less alprazolam for sleep, but he finds he needs his Remeron on a daily basis. Today, the patient would also like to talk about smoking cessation. He currently smokes 1 pack of cigarettes a day and would like to discuss trying to stop smoking. ALLERGIES: No known drug allergies. CURRENT LIST OF MEDICATIONS: Hydrocodone 5/325 p.r.n., mirtazapine 15 mg at bedtime and alprazolam 2 mg at bedtime. PQRS: 1. He denies any osteo or rheumatoid arthritis. 2. Height is 5 feet 8 inches, weight is 137, BMI is 20. Vital signs; 106/82, pulse is 73, respirations 14, oxygen sat is 99. 3. Pain score is 3/10. 4. Denies dizziness, does not need help walking or standing, has not fallen in the last 3 months. 5. The patient is not on any blood thinners or medicine for hypertension. His opioid therapy is greater than 6 weeks; therefore, an opioid signed contract is on the chart. Risk assessment tool is low. Functional assessment is 32/70. 6. Recreational drug use, he denies. He is a current smoker of [address] [place] [address] PAIN MANAGEMENT CONSULTATION Name: MAGDA VILLELA Room #: REG AFSHAN Reynoso#: [id number] Admission: 12/25/19 Attend Phys: Callie Dillard Discharge: Date of : 74 Report #: [id number] cigarettes a day and does not drink alcohol. According to the prescription monitoring system, the patient is filling appropriately for his medications in a timely fashion. His new insurance only allowed a 7-day prescription in early November of his hydrocodone. We will check a random urine drug screen on this patient today had been greater than one year. According to the CDC guidelines, his morphine mEq is less than 15 per day. PHYSICAL EXAMINATION: GENERAL: This is alert and orientated 49-year-old who appears his stated age, placing his current pain score at 3/10 today. HEENT: Normocephalic, atraumatic. Extraocular eye muscles are intact. Mucous membranes are moist. MUSCULOSKELETAL: He has tenderness in his lower back with limited range of motion due to his fusion. Well-healed scar in his thoracic, lumbar region. His lower extremity strength judged to be 5/5 in all major muscle groups. He ambulates without difficulty. IMPRESSION: 1. Post-laminectomy with fusion, multiple levels of thoracic fusion. 2. Chronic persistent thoracic back pain. 3. Low back pain. 4. Management of high risk medications under terms of written opioid agreement. 5. Insomnia. 6. Tobacco habituation. We reviewed the fact that opiate medications are being used to provide analgesia adequate to support activities of daily living, not attempting to achieve a specific pain score on the 0-10 Visual Analog Scale. The current opiate medications are providing sufficient analgesia to allow the patient to participate in activities of daily living. The patient is not exhibiting any aberrant behavior suggestive of drug diversion. The patient is not having any adverse reactions to medications. The patient is not suffering from daytime somnolence or mental acuity changes. The patient is managing opiate-induced constipation with appropriate jpwc-zly-fhnyccf agents and dietary considerations. The patient was counseled on concern for caution with operating a motor vehicle while using opiate medications. PLAN: 1. We discussed treatment options with the patient today. The patient finds his medications very beneficial in controlling his pain and his insomnia on days he is able to take less alprazolam and less hydrocodone, but always needs his Remeron. Today, we will refill these medicines for; A. Hydrocodone 5/325, #90 for today, 4-week and 8-week release. B. Alprazolam 2 mg, #30 with 2 additional refills will be given. C. Remeron 15 mg, #30 with 5 additional refills will be sent electronically. [address] [address] PAIN MANAGEMENT CONSULTATION Name: MAGDA VILLELA Room #: REG AFSHAN [facility].#: [id number] Admission: 12/25/19 Attend Phys: Callie Dillard Discharge: Date of : 74 Report #: [id number] 3. We did discuss smoking cessation. The patient had tried to stop smoking in the past using Chantix. He had side effects as a result of this medication. We will try Nicoderm CQ patches. The patient is instructed to use a 21 mg patch for a month, then step 2 is 14 mg for 2 weeks, then step 3- 7 mg for 2 weeks and then off. He is to stop smoking with the first patch. The patient is very motivated to try to stop smoking, especially during this time when COVID-19 is affecting people that do have respiratory issues such as smoking more readily than nonsmokers. 4. The patient did provide a urine specimen for random drug screen today. 5. The patient is seen in collaboration with Dr. Charles Lebron. <ELECTRONICALLY SIGNED> By: Callie Dillard 12/25/19 1446 [id number] Callie Dillard /nt
== END ==
LOC: PAIN 06:42
DX: M54.6 Pain in thoracic spine (principal); M96.1 Postlaminectomy syndrome, not elsewhere classified; M43.24 Fusion of spine, thoracic region; M54.5 Low back pain; F11.20 Opioid dependence, uncomplicated

== ENCOUNTER → 2020-04-22 | Outpatient (CLI) | payer OTHER ==
[~2020-04-22] VITALS: Ht 172.7 cm; Wt 61.7 kg
--- NOTE | ~2020-04-22 | HPC ---
[facility] [address] [place] [address] PAIN MANAGEMENT CONSULTATION Name: MAGDA VILLELA Room #: REG AFSHAN Fredrick.#: [id number] Admission: 04/22/20 Attend Phys: Charles Lebron MD Discharge: Date of : 74 Report #: [id number] THIS REPORT FOR: cc: Gerald Malone,Charles Hicks MD ~ CC: Major Malone DO DATE OF SERVICE: 04/22/2020 Follow up visit for chronic thoracic back pain, status post thoracic laminectomy and fusion. The patient is here today in followup. I last saw him on 12/25/2019. He is on an opioid agreement and we managed medications for his chronic intractable pain and insomnia. Careful titration was undertaken to try and get him sleeping and ever since we have come up with a regimen that he can take safely, which includes a benzodiazepine, mirtazapine and his chronic pain medication, he has been sleeping well at night and this has made a tremendous difference in his quality of life. He has a complicated history and has dealt with posttraumatic stress disorder. 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 He has never had an incident. He reports that he has not even run over a curb! He is grateful for the work and the benefits that it provides. He has always been an exceptionally hard worker. I have been helping him with tobacco cessation issues. He has tried very diligently to go off of cigarettes and has reduced to half a pack a day. I started him on Nicoderm patches, but they do not stick. We talked about just stopping cold turkey. He admitted that he does it more by habit than by need for the drug. He has completely given up all other vices. He used to drink heavily in order to control his pain and we have completely eliminated alcohol in his treatment. He has not had a drink for years and has no issues, no urge to do so. Because he reduces his medications when he is at work, his medications have lasted him a little bit longer than the 3 months of medicines I provide for him. He has tried to remain active, even enjoys hitting a golf ball on occasion. He has ridden a motorcycle. We have had many discussions about the effects of medication. He seems to be quite tolerant of these medicines, having taken them for a long time and I will [facility] [address] [place] [address] PAIN MANAGEMENT CONSULTATION Name: MAGDA VILLELA [facility] [id number] Admission: 04/22/20 Attend Phys: Charles Lebron MD Discharge: Date of : 74 Report #: [id number] continue them for him as prescribed. MEDICATIONS: Hydrocodone 5/325 one t.i.d., alprazolam 2 mg 1 tablet at bedtime, Remeron 15 mg at bedtime. PHYSICAL EXAMINATION: GENERAL: He is a pleasant, very easy going 50-year-old, alert and oriented, gives a clear history. His speech is strong. He is 5 feet 8 inches, 136 pounds, BMI is 20.7. VITAL SIGNS: Blood pressure 107/78, heart rate 95, respirations 16, O2 sat 97. HEENT: Reveals pupils to be equal, round, reactive to light. He is wearing a mask because of COVID restrictions. NECK: Supple. CARDIAC: Rhythm is regular. CHEST: No inspiratory and expiratory wheezing. MUSCULOSKELETAL: Reveals a large scar and some tenderness across the thoracic spine. Limited range of motion. No pain in the legs at this time. Gait is stable. IMPRESSION: 1. Chronic intractable spinal pain, status post extensive thoracic laminectomy. 2. Insomnia. 3. Management of high-risk medications carefully titrated under terms of written opioid agreement. 4. Tobacco habituation. PLAN: I have renewed his medications under terms of our agreement. I plan to see him back in 3 months. By: 1630 [id number] Charles Lebron MD /nt
[2020-04-22 13:44] VITALS: BP 107/78
--- NOTE | 2020-04-22 13:55 | NUR ---
Pain Clinic Assessment: 1. History of Osteoarthritis: DENIES History of Rheumatoid Arthritis: DENIES 2. Height: 5 ft. 8 in. 172.7 cm. Weight: 136.0 lb. oz. 61.689 kg. Patient's BMI: 20.7 3. Vital Signs: BP: 107/78 Pulse: 95 Resp: 16 Temp: 02 Sat: 97 ECG Mon: 4. Pain Intensity: 8 5. Fall Risk: Dizziness: N Needs help standing or walking: N Fallen in the last 3 months: N Fall risk comments: 6. Patient on Blood Thinner: None 7. History of Hypertension: N 8. Opioid Therapy greater than 6 weeks: Y Opiate Contract Signed: 04/06/19 9. Risk Assessment Tool Provided: LOW RISK 1 10. Functional Assessment Tool: 11. Recreational Drug Use: Never Drug Type: Tobacco Use: Current Every Day Smoker Tobacco Type: Cigarettes Amount or Packs/day: 1/2 pack How Many Years: 30 Alcohol Use: No Frequency: Quant:
== END ==
LOC: PAIN 06:55
PROVIDERS: ATTEND Anesthesiology Pain Medicine
DX: G89.4 Chronic pain syndrome (principal); M54.9 Dorsalgia, unspecified; F17.200 Nicotine dependence, unspecified, uncomplicated; Z98.1 Arthrodesis status; Z79.891 Long term (current) use of opiate analgesic

== ENCOUNTER → 2020-07-19 | Outpatient (CLI) | payer OTHER ==
[~2020-07-19] VITALS: Ht 152.4 cm; Wt 62.2 kg
[2020-07-19 09:54] VITALS: BP 115/71
--- NOTE | 2020-07-19 10:07 | NUR ---
Pain Clinic Assessment: 1. History of Osteoarthritis: HANDS History of Rheumatoid Arthritis: DENIES 2. Height: 5 ft. 7 in. 152.4 cm. Weight: 137.2 lb. oz. 62.233 kg. Patient's BMI: 26.8 3. Vital Signs: BP: 115/71 Pulse: 67 Resp: 14 Temp: 02 Sat: 99 ECG Mon: 4. Pain Intensity: 4 5. Fall Risk: Dizziness: Needs help standing or walking: Fallen in the last 3 months: Fall risk comments: 6. Patient on Blood Thinner: None 7. History of Hypertension: N 8. Opioid Therapy greater than 6 weeks: Y Opiate Contract Signed: 04/06/19 9. Risk Assessment Tool Provided: LOW RISK 1 10. Functional Assessment Tool: 11. Recreational Drug Use: Never Drug Type: Tobacco Use: Current Every Day Smoker Tobacco Type: Amount or Packs/day: 1/2 How Many Years: Alcohol Use: No Frequency: Quant:
--- NOTE | 2020-07-22 10:35 | HPC ---
[facility] [address] [place] [address] PAIN MANAGEMENT CONSULTATION Name: MAGDA VILLELA Room #: REG MARILYNNorma Reynoso#: [id number] Admission: 07/19/20 Attend Phys: Callie Dillard Discharge: Date of : 74 Report #: [id number] CC: Callie Malone MD DATE OF SERVICE: 07/19/2020 CHIEF COMPLAINT: Chronic thoracic back pain, post-thoracic laminectomy and fusion. HISTORY OF PRESENT ILLNESS: This is a pleasant 50-year-old male who is well known to our pain clinic. He is returning today for refill of his alprazolam and discussion on his hydrocodone. Today, the patient is rating his pain score a 4/10 today. He states that his pain is most problematic in his lower back, mid thoracic area. It is a pressure feeling. 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 He feels that walking and lying in certain positions are problematic for him. He feels that the medications as well as occasional heat have been beneficial. He also reports that his alprazolam and Remeron allow him to sleep at night and he is very thankful for those medications. Today, the patient is reporting he has been able to decrease his hydrocodone and is only requesting 60 tablets instead of his usual 90 of his hydrocodone 5/325. He is hopeful to be able to wean down on this medication in the future, but he will keep us apprised how he is doing. He did not experience any withdrawal symptoms by taking less medications. Today, he is here requesting refills of his alprazolam. ALLERGIES: No known drug allergies. CURRENT LIST OF MEDICATIONS: Remeron 15 mg at bedtime, hydrocodone 5/325 p.r.n., alprazolam 2 mg at bedtime. PQRS: 1. He has history of osteoarthritis in his hands. Denies any rheumatoid arthritis. 2. Height is 5 feet 7 inches, weight is 137, BMI is 26. 3. Vital signs; blood pressure 115/71, pulse is 67, respirations 14, oxygen sat is 99. 4. Pain score is 4/10. 5. Denies dizziness, does not need help walking or standing, has not fallen in the last 3 months. 6. The patient is not on any blood thinners or medicines for blood pressures. His opioid therapy is greater than 6 weeks; therefore, an opioid signed contract is on the chart. Risk assessment is low. Functional assessment is 32/70. 7. Recreational drug use, he denies. He is a current smoker, about 10 cigarettes a day, does not drink alcohol. According to the prescription monitoring system, the patient has filled his hydrocodone medications, filling the last one last week. According to the prescription monitoring, he should have one alprazolam prescription left to refill. His morphine milliequivalent is 10-15 MME's per day and he is cautious of taking benzodiazepine and his opioid medications. PHYSICAL EXAMINATION: GENERAL: This is an alert and orientated, pleasant 50-year-old gentleman who is well-developed, well-nourished, placing his current pain score at 4/10. HEENT: Reveals pupils equal, round and reactive to light. He is wearing a mask. NECK: Supple. CHEST: No inspiratory or expiratory wheezing tenderness on the right thoracic region. No ecchymosis noted. MUSCULOSKELETAL: He has pain in his midthoracic spine with limited range of motion due to previous surgery. He has a normal gait. He has a well-healed scar in his thoracic, lumbar region. His upper and lower extremity strength is symmetrical at 5/5. IMPRESSION: 1. Post-laminectomy with fusion at multiple levels in the thoracic region. 2. Chronic persistent thoracic back pain. 3. Low back pain. 4. Insomnia. 5. Tobacco habituation. 6. Management of high risk medications under terms of written opioid agreement. We reviewed the fact that opiate medications are being used to provide analgesia adequate to support activities of daily living, not attempting to achieve a specific pain score on the 0-10 Visual Analog Scale. The current opiate medications are providing sufficient analgesia to allow the patient to participate in activities of daily living. The patient is not exhibiting any aberrant behavior suggestive of drug diversion. The patient is not having any adverse reactions to medications. The patient is not suffering from daytime somnolence or mental acuity changes. The patient is managing opiate-induced constipation with appropriate [id number] agents and dietary considerations. The patient was counseled on concern for caution with operating a motor vehicle while using opiate medications. A physical exam was performed and the patient's functional status was evaluated. All patients with back pain were advised against the bed rest greater than 4 days and were advised to return to normal activities. Pain score assessment was noted and the treatment plan was reviewed with the patient. All current medications, both prescribed and OTC were reviewed and reconciled on the electronic medical record. Tobacco screening was accomplished and smoking cessation was advised when indicated. BMI was noted and diet/exercise modification was recommended for all patients following outside normal parameters. I reviewed with the patient today their responsibilities to safeguard prescription medications, reviewed their responsibility to utilize medications only as prescribed by the physician. They are to seek and receive pain medications only from 1 physician group ( [facility]). They are to use 1 pharmacy and keep the clinic informed if they change pharmacies. Their responsibilities include making followup visits in a timely fashion and to avoid abrupt discontinuation of medication usage. Their responsibilities further include bringing their medications (bottles from the pharmacy with residual pills) to the visit for possible confirmation of pill counts and the patient understands it is their responsibility to submit to random drug screens to ensure both that the medications prescribed are present, and that no other controlled substances are present. All prescriptions provided today were generated electronically. PLAN: 1. We discussed treatment options with the patient today. He reports he is in need of alprazolam prescriptions. According to our records, he should have one medication fill left. I did speak with his [facility] who did transfer that medication to [facility]. The patient had forgotten that there is 1 prescription to fill. They will fill this for the patient today. Then, we will continue him on this medication, but sending it electronically to his normal [facility] allowing him to fill in 1 months' time. 2. The patient does report he has been taking less hydrocodone and would only like 60 tablets. His goal is to eventually wean off this medication. We will have this medication sent to his [facility] to release on 08/03/2020, 08/31/2020 and then 09/28/2020 for #60 tablets. When the patient does return in October, we will discuss tapering him further explaining to the patient that we do not want him to experience some withdrawal symptoms, so we will taper him slowly if need be and the patient verbalizes understanding. 3. We discussed smoking cessation again. He has not used his Nicoderm patches yet but he is slowly decreasing his smoking. He beleives that he smokes less then 10 cigaretts a day. He will try to continue to decrease or quit before his next appointment. He knows that he felt better not smoking. 4. The patient is not in need of Remeron refills today, but he does find that medication very beneficial. The patient is seen today in collaboration with Dr. Mohsen Robertson who is covering for Dr. Lebron. <ELECTRONICALLY SIGNED> By: Callie Dillard 07/22/20 [id number] Callie Dillard /nt
== END ==
LOC: PAIN 08:45
PROVIDERS: ATTEND Clinical Nurse Specialist Adult Health
DX: M54.6 Pain in thoracic spine (principal); G89.29 Other chronic pain; M96.1 Postlaminectomy syndrome, not elsewhere classified; G47.00 Insomnia, unspecified; F17.200 Nicotine dependence, unspecified, uncomplicated; Z79.891 Long term (current) use of opiate analgesic; Z79.899 Other long term (current) drug therapy

== ENCOUNTER → 2020-11-11 | Outpatient (CLI) | payer OTHER ==
[~2020-11-11] VITALS: Ht 170.2 cm; Wt 60.4 kg
[2020-11-11 09:00] VITALS: BP 104/63
--- NOTE | 2020-11-11 09:12 | NUR ---
Pain Clinic Assessment: 1. History of Osteoarthritis: HANDS History of Rheumatoid Arthritis: DENIES 2. Height: 5 ft. 7 in. 170.2 cm. Weight: 133.2 lb. oz. 60.419 kg. Patient's BMI: 20.9 3. Vital Signs: BP: 104/63 Pulse: 72 Resp: 14 Temp: 02 Sat: 100 ECG Mon: 4. Pain Intensity: 7 5. Fall Risk: Dizziness: N Needs help standing or walking: N Fallen in the last 3 months: N Fall risk comments: 6. Patient on Blood Thinner: None 7. History of Hypertension: N 8. Opioid Therapy greater than 6 weeks: Y Opiate Contract Signed: 04/06/19 9. Risk Assessment Tool Provided: LOW RISK 0 10. Functional Assessment Tool: 11. Recreational Drug Use: Never Drug Type: Tobacco Use: Current Every Day Smoker Tobacco Type: Cigarettes Amount or Packs/day: 1 PACK/DAY How Many Years: 30 Alcohol Use: No Frequency: Quant:
== END ==
LOC: PAIN 07:03
PROVIDERS: ATTEND Anesthesiology Pain Medicine
DX: Z76.0 Encounter for issue of repeat prescription (principal); Z79.891 Long term (current) use of opiate analgesic; F17.200 Nicotine dependence, unspecified, uncomplicated; G47.00 Insomnia, unspecified

== ENCOUNTER → 2021-02-10 | Outpatient (CLI) | payer OTHER ==
[~2021-02-10] VITALS: Ht 170.2 cm; Wt 61.8 kg
[2021-02-10 09:29] VITALS: BP 100/69
--- NOTE | 2021-02-10 09:35 | NUR ---
Pain Clinic Assessment: 1. History of Osteoarthritis: HANDS History of Rheumatoid Arthritis: DENIES 2. Height: 5 ft. 7 in. 170.2 cm. Weight: 136.2 lb. oz. 61.780 kg. Patient's BMI: 21.3 3. Vital Signs: BP: 100/69 Pulse: 84 Resp: 14 Temp: 02 Sat: 100 ECG Mon: 4. Pain Intensity: 3 5. Fall Risk: Dizziness: N Needs help standing or walking: N Fallen in the last 3 months: N Fall risk comments: 6. Patient on Blood Thinner: None 7. History of Hypertension: N 8. Opioid Therapy greater than 6 weeks: Y Opiate Contract Signed: 04/06/19 9. Risk Assessment Tool Provided: LOW RISK 0 10. Functional Assessment Tool: 11. Recreational Drug Use: Never Drug Type: Tobacco Use: Current Every Day Smoker Tobacco Type: Cigarettes Amount or Packs/day: 1 pack How Many Years: Alcohol Use: No Frequency: Quant:
== END ==
LOC: PAIN 07:10
PROVIDERS: ATTEND Clinical Nurse Specialist Adult Health
DX: M54.6 Pain in thoracic spine (principal); G89.29 Other chronic pain; F17.210 Nicotine dependence, cigarettes, uncomplicated; Z79.899 Other long term (current) drug therapy; Z79.891 Long term (current) use of opiate analgesic

== ENCOUNTER → 2021-05-15 | Outpatient (CLI) | payer OTHER ==
[~2021-05-15] VITALS: Ht 170.2 cm; Wt 54.2 kg
[2021-05-15 08:58] VITALS: BP 98/65
--- NOTE | 2021-05-15 09:12 | NUR ---
Pain Clinic Assessment: 1. History of Osteoarthritis: HANDS History of Rheumatoid Arthritis: DENIES 2. Height: 5 ft. 7 in. 170.2 cm. Weight: 119.4 lb. oz. 54.159 kg. Patient's BMI: 18.7 3. Vital Signs: BP: 98/65 Pulse: 78 Resp: 12 Temp: 02 Sat: 100 ECG Mon: 4. Pain Intensity: 4 5. Fall Risk: Dizziness: Y Needs help standing or walking: N Fallen in the last 3 months: N Fall risk comments: 6. Patient on Blood Thinner: None 7. History of Hypertension: N 8. Opioid Therapy greater than 6 weeks: Y Opiate Contract Signed: 04/06/19 9. Risk Assessment Tool Provided: LOW RISK 0 10. Functional Assessment Tool: 11. Recreational Drug Use: Never Drug Type: Tobacco Use: Current Every Day Smoker Tobacco Type: Cigarettes Amount or Packs/day: 1/2 pack How Many Years: Alcohol Use: No Frequency: Quant:
== END ==
LOC: PAIN 08:31
PROVIDERS: ATTEND Clinical Nurse Specialist Adult Health
DX: G89.29 Other chronic pain (principal); M54.6 Pain in thoracic spine; R63.0 Anorexia; C06.9 Malignant neoplasm of mouth, unspecified; Z79.891 Long term (current) use of opiate analgesic; Z79.899 Other long term (current) drug therapy

== ENCOUNTER → 2021-10-27 | Outpatient (CLI) | payer OTHER ==
[~2021-10-27] VITALS: Ht 170.2 cm; Wt 55.2 kg
[~2021-10-27] MED LIST changes: +SILDENAFIL CITR50 MG PO
[2021-10-27 09:16] VITALS: BP 103/70
--- NOTE | 2021-10-27 09:24 | NUR ---
Pain Clinic Assessment: 1. History of Osteoarthritis: HANDS History of Rheumatoid Arthritis: DENIES 2. Height: 5 ft. 7 in. 170.2 cm. Weight: 121.6 lb. oz. 55.157 kg. Patient's BMI: 19.0 3. Vital Signs: BP: 103/70 Pulse: 73 Resp: 20 Temp: 02 Sat: 100 ECG Mon: 4. Pain Intensity: 5-6 IN AM 4 IN AFTERNOON 5. Fall Risk: Dizziness: N Needs help standing or walking: N Fallen in the last 3 months: N Fall risk comments: 6. Patient on Blood Thinner: None 7. History of Hypertension: N 8. Opioid Therapy greater than 6 weeks: Y Opiate Contract Signed: 04/06/19 9. Risk Assessment Tool Provided: LOW RISK 0 10. Functional Assessment Tool: 11. Recreational Drug Use: Never Drug Type: Tobacco Use: Current Every Day Smoker Tobacco Type: Amount or Packs/day: How Many Years: Alcohol Use: No Frequency: Quant:
== END ==
LOC: PAIN 08:45
PROVIDERS: ATTEND Anesthesiology Pain Medicine
DX: G89.29 Other chronic pain (principal); M54.50 Low back pain, unspecified; M54.6 Pain in thoracic spine; G47.00 Insomnia, unspecified; C44.02 Squamous cell carcinoma of skin of lip; Z88.8 Allergy status to other drugs, medicaments and biological substances; R63.0 Anorexia; Z98.1 Arthrodesis status; Z79.899 Other long term (current) drug therapy

== ENCOUNTER 2021-11-13 10:02 | Emergency (ER) | payer OTHER ==
[~2021-11-13] VITALS: Ht 170.2 cm; Wt 52.2 kg
[2021-11-13] MEDS ORDERED: CYCLOBENZAPRINE5 MG PO (13:12)
[2021-11-13] MEDS ORDERED: IBU600 MG PO (13:12)
[2021-11-13 13:27] VITALS: BP 119/75
== END 2021-11-13 13:29 | disposition home or self-care (01) ==
LOC: ER 10:02
DX: M54.2 Cervicalgia (principal); M54.50 Low back pain, unspecified; R07.89 Other chest pain; F17.210 Nicotine dependence, cigarettes, uncomplicated; V49.49XA Driver injured in collision with other motor vehicles in traffic accident, initial encounter; Y93.I9 Activity, other involving external motion; Y92.413 State road as the place of occurrence of the external cause; Y99.8 Other external cause status